=== PATIENT | male | born 1985 | race Caucasian/White ===

== ENCOUNTER 2017-10-21 15:32 | Emergency (ER) | payer OTHER ==
[2017-10-21 15:40] VITALS: BP 156/92
[2017-10-21] MEDS ORDERED: PROPARACAINE 0.5% OPHTH DROPS 15 ML EACHEYE STA (15:41)
--- NOTE | 2017-10-21 15:46 | ED Physician Documentation ---
PD HPI OPHTHO - Stated complaint Stated Complaint: PX BOTH EYES - Chief complaint Chief Complaint: Heent - History obtained from History obtained from: Patient - History of Present Illness Timing - onset: Other (He got brake fluid in both of his eyes while working on his car just prior to arrival. His vision is normal. He does not wear contacts.) Review of Systems Constitutional: denies: Fever, Chills Eyes: reports: Irritation. denies: Loss of vision, Decreased vision, Photophobia, Discharge Ears: denies: Loss of hearing, Ear pain PD PAST MEDICAL HISTORY - Past Medical History Past Medical History: No - Past Surgical History Past Surgical History: No - Present Medications Home Medications: Ambulatory Orders Medication Instructions Recorded Confirmed No Known Home Medications [No 10/21/17 10/21/17 Known Home Medications] - Allergies Allergies/Adverse Reactions: Allergies Allergy/AdvReac Type Severity Reaction Status Date / Time No Known Drug Allergies Allergy Verified 10/21/17 15:40 - Social History Does the pt smoke?: No Smoking Status: Never smoker PD ED PE NORMAL - Vitals Vital signs reviewed: Yes - General General: Alert and oriented X 3, No acute distress - HEENT HEENT: PERRL, EOMI, Other (Mild conjunctival irritation bilaterally.) - Neuro Neuro: Alert and oriented X 3, Normal speech - Psych Psych: Normal mood, Normal affect Results - Vitals Vitals: Vital Signs - 24 hr 10/21/17 15:36 Temperature 36.8 C Heart Rate 92 Respiratory 18 Rate Blood Pressure 156/92 H O2 Saturation 98 Oxygen O2 Source Room air PD MEDICAL DECISION MAKING - ED course ED course: Poison control was contacted, they recommend conservative care with irrigation. He was irrigated and then after this fluorescein was done and there was no uptake bilaterally. Departure - Departure Disposition: 01 Home, Self Care Clinical Impression: Chemical insult, eye Qualifiers: Encounter type: initial encounter Laterality: unspecified laterality Qualified Code(s): T26.90XA - Corrosion of unspecified eye and adnexa, part unspecified, initial encounter Condition: Good Record reviewed to determine appropriate education?: Yes Instructions: ED Chemical Conjunctivitis Follow-Up: Konrad Fitzgerald MD [Provider Admit Priv/Credential] - Within 3 Days Comments: Your blood pressure was elevated today on check into the emergency department. This does not mean that you have hypertension, it is a common phenomenon to come to the emergency department and have elevated blood pressure. I recommend that you see your primary care physician within the week to have it rechecked when you are feeling better.
== END 2017-10-21 16:15 | disposition home or self-care (01) ==
LOC: ED 15:32
DX: T65.891A Toxic effect of other specified substances, accidental (unintentional), initial encounter (principal); T26.92XA Corrosion of left eye and adnexa, part unspecified, initial encounter; T26.91XA Corrosion of right eye and adnexa, part unspecified, initial encounter; R03.0 Elevated blood-pressure reading, without diagnosis of hypertension
CPT/HCPCS: 99282; 99283; J3490